=== PATIENT | female | born 2000 | race African-American/Black ===

== ENCOUNTER 2023-08-07 09:31 | Emergency (ER) | payer SELFPAY ==
[2023-08-07] MEDS ORDERED: LIDOCAINE HCL 2% (20ML MULTI-DOSE VIAL) ONE (11:56)
[2023-08-07] MEDS: LIDOCAINE HCL 2% (50ML VIAL) SQ ONE (11:56)
[2023-08-07 12:16] VITALS: BP 114/84; PULSE 101; RESP 18; TEMP 98.8; BMI 16.6
[2023-08-07] MEDS: DIPHTH,PERTUSS(ACELL),TET 0.5 ML DISP.SYRIN IM ONE (12:31)
== END 2023-08-07 12:45 | disposition home or self-care (01) ==
LOC: JERFT 09:31
PROC: 3E0234Z Introduction of Serum, Toxoid and Vaccine into Muscle, Percutaneous Approach (ICD-10-PCS; principal; 2023-08-07)
DX: S01.311A Laceration without foreign body of right ear, initial encounter (principal); Y04.8XXA Assault by other bodily force, initial encounter; Z23 Encounter for immunization
CPT/HCPCS: 90715; 99283-25